=== PATIENT | female | born 2000 | race Caucasian/White ===

== ENCOUNTER 2018-08-08 10:15 | Emergency (ER) | payer OTHER ==
[~2018-08-08] VITALS: Ht 177.8 cm; Wt 74.0 kg
[2018-08-08] MEDS ORDERED: SODIUM CHLORIDE FLUSH 10ML SYR IVF ONE (11:00)
[2018-08-08] MEDS ORDERED: METOCLOPRAMIDE 5 MG/ML, 2ML IVPush ONE (11:00)
[2018-08-08] MEDS ORDERED: DIPHENHYDRAMINE 50 MG/ML, 1ML IVPush ONE (11:00)
[2018-08-08] MEDS ORDERED: SODIUM CHLORIDE 0.9% 1,000ML IVBOLUS ONE (11:00)
[2018-08-08] MEDS ORDERED: KETOROLAC 30 MG/1 ML IVPush ONE (11:00)
[2018-08-08] MEDS ORDERED: DIPHENHYDRAMINE 50 MG/ML, 1ML ONE (11:04)
[2018-08-08] MEDS ORDERED: METOCLOPRAMIDE 5 MG/ML, 2ML ONE (11:04)
[2018-08-08] MEDS ORDERED: KETOROLAC 30 MG/1 ML ONE (11:04)
[2018-08-08 11:43] VITALS: BP 110/69
[2018-08-08] MEDS ORDERED: ONDANSETRON ODT 4 MG ONE (12:16)
[2018-08-08] MEDS ORDERED: DIPHENHYDRAMINE 25 MG CAPSULE ONE (12:16)
[2018-08-08] MEDS ORDERED: ONDANSETRON ODT 4 MG PO ONE (12:30)
[2018-08-08] MEDS ORDERED: DIPHENHYDRAMINE 25 MG CAPSULE PO ONE (12:30)
[2018-08-08] MEDS ORDERED: KETOROLAC 30 MG/1 ML IM ONE (12:30)
== END 2018-08-08 13:56 | disposition home or self-care (01) ==
LOC: ED 11:30
DX: G44.209 Tension-type headache, unspecified, not intractable (principal)
CPT/HCPCS: 70450; 96372; 99284; J1885; Q0162; Q0163